=== PATIENT | female | born 1945 | race Caucasian/White ===

== ENCOUNTER 2016-09-10 18:33 | Emergency (ER) | payer MEDICARE ==
[~2016-09-10] VITALS: Ht 157.5 cm; Wt 129.0 kg
[~2016-09-10 18:33] MED LIST: ASPI81CH3; BENI40TA30 PO; CALC600T55; CLIN150 PO; COQ1200C3 PO; GLUC1000 PO; HYDR12.56 PO; LIPI10TA PO; PIOG45 PO; PRIL20CA PO
[2016-09-10 18:39] VITALS: BP 162/70; PULSE 108; RESP 16; TEMP 97.8; O2SAT 97
[2016-09-10] MEDS ORDERED: ALBU0.08 NEB (19:00)
[2016-09-10] MEDS ORDERED: BENZ100 PO (19:00)
--- NOTE | 2016-09-10 19:12 | PD ---
HPI Chief Complaint: Respiratory Symptoms Time Seen by Provider: 18:49 Travel History International Travel<30 days: No Contact w/Intl Traveler<30days: No Traveled to known affect area: No History of Present Illness HPI The patient was seen and examined in the presence of the nurse. Patient complains of dry hacking cough. Duration 3-4 days. No shortness of breath or fever. Nonsmoker. No history of lung disease. She says she frequently gets bronchitis. Had it several times last year. PFSH Past Medical History Cardiovascular Problems: Yes (htn on meds) Diabetes: Yes (type 2) ?: Not Social History Alcohol Use: No Tobacco Use: No Substance Use: No Allergies-Medications (Allergen,Severity, Reaction): Coded Allergies: Claritin (Verified Adverse Reaction, Unknown, Eyes and nose watering, ) Reported Meds & Prescriptions Reported Meds & Active Scripts Active Albuterol Neb (Albuterol Sulfate) 2.5 Mg/3 Ml Neb 2.5 Mg NEB Q4HR NEB PRN Tessalon Perles (Benzonatate) 100 Mg Cap 200 Mg PO TID PRN Reported Calcium + D3 600-200 mg-Unit (Calcium Carbonate-Vitamin D) 1 Tab Tab BID Coq10 (Coenzyme Q10) 200 Mg Cap 200 Mg PO DAILY Aspirin 81 Low Dose (Aspirin) 81 Mg Chw Hydrochlorothiazide (Miscellaneous Medication) 12.5 Mg Cap 12.5 Mg PO DAILY Benicar (Olmesartan) 40 Mg Tab 40 Mg PO DAILY Prilosec 20 mg (Omeprazole) 20 Mg Cap 20 Mg PO DAILY Lipitor 10 Mg Tab (Atorvastatin Calcium) 10 Mg Tab 10 Mg PO HS Glucophage 1000 mg (Metformin HCl) 1,000 Mg Tab 1,000 Mg PO BIDPC Actos 45 mg (Pioglitazone HCl) 45 Mg Tab 1 Tab PO DAILY Cleocin (Clindamycin HCl) 150 Mg Cap 150 Mg PO Q8 Review of Systems General / Constitutional: No: Fever HENT: No: Headaches Respiratory: Positive: Cough Physical Exam Narrative RESPIRATORY: Respiratory effort unlabored, no retractions or use of accessory muscles. Breath sounds are clear and symmetric. CARDIOVASCULAR: Regular rate and rhythm without murmur. Extremities showed no edema or varicosities. SKIN: Inspection shows no rash or ulcers. Palpation shows no induration or nodules. Throat clear Data Data Last Documented VS Vital Signs Date Time Temp Pulse Resp B/P Pulse Ox O2 Delivery O2 Flow Rate FiO2 09/10/16 18:39 97.8 108 16 162/70 97 MDM Medical Decision Making Medical Screen Exam Complete: Yes Emergency Medical Condition: Yes Medical Record Reviewed: Yes Differential Diagnosis Bronchitis, pneumonia, URI Narrative Course I have reviewed the patient's electronic medical record. Presentation is most consistent with an acute viral bronchitis. I don't feel antibiotics are indicated. Discussed strategies to deal with her cough. I refilled her albuterol nebulizer medication and prescribe some Tessalon for a trial Diagnosis Primary Impression: Acute viral bronchitis Additional Instructions: The patient was advised to follow up with their physician and return if they worsen. Med/Other Pt SpecificInfo: Prescription(s) given Scripts Albuterol Neb 2.5 Mg/3 Ml Neb2.5 Mg NEB Q4HR NEB PRN (SHORTNESS OF BREATH) #60 NEBULE Ref 0 Prov:Rich Martinez MD 09/10/16 Benzonatate (Tessalon Perles)100 Mg [id number] Mg PO TID PRN (COUGH) #21 CAP Ref 0 Prov:Rich Martinez MD 09/10/16 Disposition: 01 DISCHARGE HOME Condition: Stable Rich Martinez MD Sep 10, 2016 19:12
[2016-09-10] MEDS ORDERED: METF1000 PO (19:23)
[2016-09-10] MEDS ORDERED: ASPI81CH CHEW (19:23)
[2016-09-10] MEDS ORDERED: VENTAER INH (19:23)
[2016-09-10] MEDS ORDERED: ALBU.5I NEB (19:23)
[2016-09-10] MEDS ORDERED: ACTO45TA8 PO (19:23)
[2016-09-10] MEDS ORDERED: BENI40TA3 PO (19:23)
[2016-09-10] MEDS ORDERED: PRIL20CA9 PO (19:23)
[2016-09-10] MEDS ORDERED: LIPI10TA PO (19:23)
[2016-12-06] MEDS ORDERED: LORA10TA PO (13:02)
[2016-12-06] MEDS ORDERED: CALC600T25 PO (13:02)
[2016-12-06] MEDS ORDERED: COQ-100C2 PO (13:02)
[2016-12-06] MEDS ORDERED: EYECAP PO (13:02)
[2016-12-06] MEDS ORDERED: AMLO10TA2 PO (13:02)
[2016-12-06] MEDS ORDERED: AMOX500C PO (13:02)
[2016-12-06] MEDS ORDERED: HYDR12.57 PO (13:02)
[2016-12-06] MEDS ORDERED: GABA300C5 PO (13:02)
[2016-12-06] MEDS ORDERED: MOBI15TA PO (13:02)
[2016-12-06] MEDS ORDERED: MONT10TA4 PO (13:02)
[2016-12-07] MEDS ORDERED: VITATAB43 PO (11:25)
== END 2016-09-10 19:40 | disposition home or self-care (01) ==
LOC: PHED 18:33
DX: J20.8 Acute bronchitis due to other specified organisms (principal); I10 Essential (primary) hypertension; E11.9 Type 2 diabetes mellitus without complications
CPT/HCPCS: 99283

== ENCOUNTER → 2016-10-06 | Outpatient (CLI) | payer MEDICARE ==
[~2016-10-06] MED LIST changes: +ACTO45TA8 PO; +ALBU.5I NEB; +ALBU0.08 NEB; +AMLO10TA2 PO; +AMOX500C PO; +ASPI81CH CHEW; -ASPI81CH3; +BENI40TA3 PO; -BENI40TA30 PO; +BENZ100 PO; +CALC600T25 PO; -CALC600T55; -CLIN150 PO; +COQ-100C2 PO; -COQ1200C3 PO; +EYECAP PO; +GABA300C5 PO; -GLUC1000 PO; +HYDR12.57 PO; +LORA10TA PO; +METF1000 PO; +MOBI15TA PO; +MONT10TA4 PO; -PIOG45 PO; -PRIL20CA PO; +PRIL20CA9 PO; +VENTAER INH; +VITATAB43 PO
[2016-10-06 13:06] LABS: AUTOMATED NEUTROPHIL # 2.4 TH/MM3 (1.8-7.7); BASOPHIL % 1.1 % (0.0-2.0); EOSINOPHIL # 0.2 TH/MM3 (0-0.4); EOSINOPHIL % 4.4 % (0.0-4.0); HEMATOCRIT 30.5 % (35.0-46.0); HEMO FLAGS DIFF FINAL; LYMPH % 30.3 % (9.0-44.0); LYMPHOCYTE # 1.3 TH/MM3 (1.0-4.8); MEAN CORPUSCULAR HGB CONC 33.7 % (32.0-36.0); MONO % 8.7 % (0.0-8.0); NEUT % 55.5 % (16.0-70.0); PLATELET COUNT 193 TH/MM3 (150-450); RED BLOOD COUNT 3.21 MIL/MM3 (4.00-5.30); RED CELL DISTRIBUTION WIDTH 15.1 % (11.6-17.2); WHITE BLOOD COUNT 4.3 TH/MM3 (4.0-11.0)
[2016-10-06 13:28] LABS: ANION GAP 10 MEQ/L (5-15); AST (GOT) 16 U/L (15-37); BLOOD UREA NITROGEN 33 MG/DL (7-18); CHLORIDE 102 MEQ/L (98-107); GLOMERULAR FILTRATION RATE 43 ML/MIN (>89); POTASSIUM 4.3 MEQ/L (3.5-5.1); SODIUM (NA) 138 MEQ/L (136-145)
[2016-10-06 13:32] LABS: WESTERGREN SEDIMENTATION RATE 48 mm/hr (0-30)
[2016-10-06 13:47] LABS: RHEUMATOID FACTOR TRIGGER LESS THAN 10.0 IU/ML (0.0-14.9)
[2016-10-06 13:55] LABS: ALKALINE PHOSPHATASE 76 U/L (45-117); ALT (GPT) 17 U/L (10-53); TOTAL BILIRUBIN ADULT 0.7 MG/DL (0.2-1.0)
[2016-10-06 14:01] LABS: CREATINE KINASE 87 U/L (26-192)
[2016-10-06 21:44] LABS: HEMOGLOBIN A1a 1.8 %; HEMOGLOBIN A1b 2.3 %; HEMOGLOBIN Ao 81.6 %; HEMOGLOBIN LA1C 2.2 %; HEMOGLOBIN P3 6.5 %
[2016-10-09 03:53] LABS: VITAMIN B6 11.9 ng/mL (2.1-21.7)
== END ==
LOC: PLAB 10:31
PROVIDERS: ATTEND Psychiatry & Neurology Neurology
DX: M32.10 Systemic lupus erythematosus, organ or system involvement unspecified (principal); G64 Other disorders of peripheral nervous system; E11.40 Type 2 diabetes mellitus with diabetic neuropathy, unspecified
CPT/HCPCS: 36415; 80053; 82550; 82607; 82746; 83036; 84207; 84425; 85025; 85652; 86038; 86430

== ENCOUNTER → 2016-11-07 | Outpatient (CLI) | payer MEDICARE | LOC: PLAB 12:39 | PROVIDERS: ATTEND Family Medicine | DX: R70.0 Elevated erythrocyte sedimentation rate (principal) | CPT/HCPCS: 36415; 85652; 86021; 86200; 86235 ==

== ENCOUNTER → 2016-12-07 | Outpatient (CLI) | payer MEDICARE ==
[~2016-12-07] VITALS: Ht 157.5 cm; Wt 132.9 kg
[~2016-12-07] MED LIST changes: -ALBU.5I NEB; -BENZ100 PO; +DEXTROSE 5% IN WATE 1000ML INJ 1,000 ML IV SCH; -HYDR12.56 PO; +PROPOFOL 200 MG/20 ML AMP IV ONE; -VENTAER INH
[2016-12-07 10:50] VITALS: BP 187/69; PULSE 105; RESP 18; TEMP 98.5; O2SAT 99
--- NOTE | 2016-12-07 12:30 | PD.HP.UP ---
H&P Update Note The Pre-Admit History and Physical Examination regarding the above named patient was reviewed (including, but not limited to, vital signs, heart, lungs, co-morbid conditions), and upon re-examination it is noted that: the patient's condition has not significantly changed since the last examination. Yefri Mcclain MD December 07, 2016 12:30
--- NOTE | 2016-12-07 12:38 | EKG ---
Date Performed: 12/07/2016 Time Performed: 11:12:49 PTAGE: 71 years EKG: Sinus rhythm NONSPECIFIC ST & T-WAVE ABNORMALITY BORDERLINE ECG NO PREVIOUS TRACING DOCTOR: Victoriano Awad Interpretating Date/Time 12/07/2016 12:38:13
[2016-12-07 13:07] VITALS: TEMP 97.5
[2016-12-07 13:40] VITALS: BP 130/62; PULSE 90; RESP 18; O2SAT 100
--- NOTE | 2016-12-08 08:14 | MR ---
cc: MARIN AVILES M.D., VIVIANE M. MD DATE 12/07/2016 PREOPERATIVE DIAGNOSIS Progressive anemia, colon cancer screening. PROCEDURE Colonoscopy to cecum. POSTOPERATIVE DIAGNOSIS 1. Normal cecum and ileocecal valve 2. Diverticulosis rectosigmoid left colon 3. Internal-external hemorrhoids SURGEON Dr. Aviles PROCEDURE The patient was placed in the left lateral decubitus position. After adequate anesthesia sedation, rectal exam confirmed the emptiness in the rectal vault. The Olympus colonoscope was then introduced into the rectum and advanced easily under direct vision through the proximal colon putting some right upper quadrant pressure in the abdomen to get the scope down to the cecum. The ileocecal valve was seen and was pretty normal. There were no vascular abnormalities noted in the cecum. Colonoscope was then gradually withdrawn visualizing the mucosal surface throughout the distal colon. No inflammatory changes were seen. No polyps were seen. Diverticulosis was noted throughout the rectosigmoid, but no signs of any active bleeding. Rectosigmoid was pretty unremarkable. Internal hemorrhoids were irritated, but no signs of ulceration or thrombosis. The patient tolerated the procedure quite well and was brought to recovery room in stable condition. MD KAJAL Ireland/MING /10:33 PM /8:10 AM
== END ==
LOC: HEND 10:27
PROVIDERS: ATTEND Colon & Rectal Surgery
DX: Z12.11 Encounter for screening for malignant neoplasm of colon (principal); D64.9 Anemia, unspecified; K64.8 Other hemorrhoids; K57.30 Diverticulosis of large intestine without perforation or abscess without bleeding; K64.4 Residual hemorrhoidal skin tags; Z01.810 Encounter for preprocedural cardiovascular examination
CPT/HCPCS: 93005

== ENCOUNTER → 2017-01-10 | Outpatient (CLI) | payer MEDICARE ==
[~2017-01-10] MED LIST changes: -DEXTROSE 5% IN WATE 1000ML INJ 1,000 ML IV SCH; -PROPOFOL 200 MG/20 ML AMP IV ONE
[2017-01-10 13:47] LABS: ANION GAP 11 MEQ/L (5-15); AST (GOT) 17 U/L (15-37); BICARBONATE 26.6 MEQ/L (21.0-32.0); BLOOD UREA NITROGEN 25 MG/DL (7-18); CHLORIDE 100 MEQ/L (98-107); GLOMERULAR FILTRATION RATE 52 ML/MIN (>89); POTASSIUM 3.7 MEQ/L (3.5-5.1); SODIUM (NA) 138 MEQ/L (136-145)
[2017-01-10 14:21] LABS: ALKALINE PHOSPHATASE 88 U/L (45-117); ALT (GPT) 22 U/L (10-53); GLUCOSE,FASTING 97 MG/DL (74-99); HDL CHOLESTEROL 73.3 MG/DL (40.0-60.0); LDL CHOLESTEROL 67 MG/DL (0-99); TOTAL BILIRUBIN ADULT 0.7 MG/DL (0.2-1.0); TRANSFERRIN IRON PROFILE 325 MG/DL (200-360)
[2017-01-10 15:57] LABS: AUTOMATED NEUTROPHIL # 3.7 TH/MM3 (1.8-7.7); BASOPHIL # 0.1 TH/MM3 (0-0.2); BASOPHIL % 1.1 % (0.0-2.0); EOSINOPHIL # 0.1 TH/MM3 (0-0.4); HEMATOCRIT 36.2 % (35.0-46.0); HEMO FLAGS DIFF FINAL; LYMPH % 21.9 % (9.0-44.0); LYMPHOCYTE # 1.2 TH/MM3 (1.0-4.8); MEAN CELL VOLUME 96.6 FL (80.0-100.0); MEAN CORPUSCULAR HGB CONC 32.1 % (32.0-36.0); MONO % 9.3 % (0.0-8.0); NEUT % 65.7 % (16.0-70.0); PLATELET COUNT 231 TH/MM3 (150-450); RED BLOOD COUNT 3.75 MIL/MM3 (4.00-5.30); RED CELL DISTRIBUTION WIDTH 15.2 % (11.6-17.2); WHITE BLOOD COUNT 5.6 TH/MM3 (4.0-11.0)
[2017-01-10 18:14] LABS: HEMOGLOBIN A1a 1.7 %; HEMOGLOBIN A1b 2.1 %; HEMOGLOBIN Ao 82.7 %; HEMOGLOBIN LA1C 2.1 %; HEMOGLOBIN P3 4.5 %
== END ==
LOC: PLAB 10:50
PROVIDERS: ATTEND Family Medicine
DX: D64.9 Anemia, unspecified (principal); E78.5 Hyperlipidemia, unspecified; E11.42 Type 2 diabetes mellitus with diabetic polyneuropathy; E53.8 Deficiency of other specified B group vitamins
CPT/HCPCS: 36415; 80053; 80061; 82607; 83036; 83540; 83550; 85025

== ENCOUNTER → 2017-05-09 | Outpatient (CLI) | payer MEDICARE ==
[2017-05-09 13:21] LABS: ANION GAP 7 MEQ/L (5-15); BICARBONATE 27.5 MEQ/L (21.0-32.0); BLOOD UREA NITROGEN 40 MG/DL (7-18); CHLORIDE 103 MEQ/L (98-107); GLOMERULAR FILTRATION RATE 35 ML/MIN (>89); POTASSIUM 4.3 MEQ/L (3.5-5.1); SODIUM (NA) 137 MEQ/L (136-145)
[2017-05-09 13:39] LABS: MICRO ALBUMIN RANDOM URINE RAW 26.9 MG/L (0.0-30.0)
[2017-05-09 13:49] LABS: TRANSFERRIN IRON PROFILE 299 MG/DL (200-360)
[2017-05-09 14:02] LABS: BASOPHIL # 0.1 TH/MM3 (0-0.2); BASOPHIL % 1.7 % (0.0-2.0); EOSINOPHIL # 0.1 TH/MM3 (0-0.4); EOSINOPHIL % 2.6 % (0.0-4.0); HEMATOCRIT 35.6 % (35.0-46.0); LYMPH % 22.4 % (9.0-44.0); MEAN CELL VOLUME 98.7 FL (80.0-100.0); MEAN CORPUSCULAR HEMOGLOBIN 33.4 PG (27.0-34.0); MEAN CORPUSCULAR HGB CONC 33.9 % (32.0-36.0); MONO % 7.2 % (0.0-8.0); NEUT % 66.1 % (16.0-70.0); PLATELET COUNT 142 TH/MM3 (150-450); RED CELL DISTRIBUTION WIDTH 15.4 % (11.6-17.2); WHITE BLOOD COUNT 4.6 TH/MM3 (4.0-11.0)
[2017-05-09 14:52] LABS: HEMO FLAGS AUTO DIFF
[2017-05-09 14:59] LABS: ACANTHOCYTES OCC (NORMAL); SCAN/DIFF AUTO DIFF CONFIRMED
[2017-05-09 15:00] LABS: PLATELET ESTIMATE SMEAR NORMAL (NORMAL); PLATELET MORPHOLOGY NORMAL (NORMAL)
== END ==
LOC: PLAB 09:41
PROVIDERS: ATTEND Nurse Practitioner Acute Care
DX: N18.3 Chronic kidney disease, stage 3 (moderate) (principal); D63.1 Anemia in chronic kidney disease
CPT/HCPCS: 36415; 80048; 82043; 82306; 83540; 83550; 83970; 85025

== ENCOUNTER → 2017-05-15 | Outpatient (CLI) | payer MEDICARE ==
[2017-05-15 14:07] LABS: HEMOGLOBIN A1a 1.5 %; HEMOGLOBIN A1b 2.1 %; HEMOGLOBIN Ao 83.1 %; HEMOGLOBIN LA1C 2.1 %
[2017-05-15 15:05] LABS: ANION GAP 10 MEQ/L (5-15); AST (GOT) 18 U/L (15-37); BICARBONATE 24.7 MEQ/L (21.0-32.0); BLOOD UREA NITROGEN 40 MG/DL (7-18); CHLORIDE 104 MEQ/L (98-107); GLOMERULAR FILTRATION RATE 40 ML/MIN (>89); GLUCOSE,FASTING 97 MG/DL (74-99); SODIUM (NA) 139 MEQ/L (136-145)
[2017-05-15 15:20] LABS: ALKALINE PHOSPHATASE 78 U/L (45-117); ALT (GPT) 22 U/L (10-53); LDL CHOLESTEROL 66 MG/DL (0-99); TOTAL BILIRUBIN ADULT 0.6 MG/DL (0.2-1.0)
== END ==
LOC: PLAB 09:35
DX: E78.5 Hyperlipidemia, unspecified (principal); E11.9 Type 2 diabetes mellitus without complications
CPT/HCPCS: 36415; 80053; 80061; 83036

== ENCOUNTER → 2017-09-11 | Outpatient (CLI) | payer MEDICARE ==
[~2017-09-11] MED LIST changes: +ACTO45TA15 PO; -ACTO45TA8 PO; +ASPI-516 CHEW; -ASPI81CH CHEW; +BENI40TA29 PO; -BENI40TA3 PO; -CALC600T25 PO; +CALC600T5 PO
[2017-09-11 16:36] LABS: HEMOGLOBIN A1C 6.9 % (4.3-6.0)
== END ==
LOC: PLAB 10:01
DX: E11.9 Type 2 diabetes mellitus without complications (principal)
CPT/HCPCS: 36415; 83036

== ENCOUNTER → 2017-12-01 | Outpatient (CLI) | payer MEDICARE ==
[2017-12-01 15:22] LABS: AUTOMATED NEUTROPHIL # 2.2 TH/MM3 (1.8-7.7); BASOPHIL % 1.1 % (0.0-2.0); EOSINOPHIL # 0.1 TH/MM3 (0-0.4); HEMATOCRIT 31.3 % (35.0-46.0); HEMOGLOBIN 10.5 GM/DL (11.6-15.3); LYMPHOCYTE # 0.9 TH/MM3 (1.0-4.8); MEAN CELL VOLUME 97.4 FL (80.0-100.0); MEAN CORPUSCULAR HEMOGLOBIN 32.7 PG (27.0-34.0); MEAN CORPUSCULAR HGB CONC 33.6 % (32.0-36.0); MEAN PLATELET VOLUME 8.6 FL (7.0-11.0); MONO % 9.9 % (0.0-8.0); MONOCYTE # 0.4 TH/MM3 (0-0.9); PLATELET COUNT 214 TH/MM3 (150-450); RED BLOOD COUNT 3.21 MIL/MM3 (4.00-5.30); RED CELL DISTRIBUTION WIDTH 14.2 % (11.6-17.2); WHITE BLOOD COUNT 3.6 TH/MM3 (4.0-11.0)
[2017-12-01 15:33] LABS: BACTERIA, URINE MANY /hpf; BILIRUBIN, URINE NEG (NEG); BLOOD, URINE TRACE (NEG); GLUCOSE,URINE NEG (NEG); KETONE, URINE NEG (NEG); MUCUS URINE FEW /lpf (OCC); NITRITE,URINE POS (NEG); SQUAMOUS EPITHELIAL CELL URINE 1 /hpf (0-5); URINE COLOR LIGHT-YELLOW (YELLW/STRAW); URINE LEUKOCYTE ESTERASE MOD (NEG)
[2017-12-01 15:51] LABS: ALBUMIN 3.6 GM/DL (3.4-5.0); BICARBONATE 25.3 MEQ/L (21.0-32.0); BLOOD UREA NITROGEN 33 MG/DL (7-18); CALCIUM 9.5 MG/DL (8.5-10.1); CHLORIDE 105 MEQ/L (98-107); CREATININE 1.15 MG/DL (0.50-1.00); GLOMERULAR FILTRATION RATE 46 ML/MIN (>89); GLUCOSE,FASTING 99 MG/DL (74-99); PHOSPHORUS 3.4 MG/DL (2.5-4.9); SODIUM (NA) 141 MEQ/L (136-145)
[2017-12-01 16:21] LABS: HEMOGLOBIN A1C 6.7 % (4.3-6.0)
[2017-12-01 17:53] LABS: LYMPHOCYTES 27 % (9-44); MONOCYTES 11 % (0-8); NEUTROPHIL # MANUAL DIFF 2.2 TH/MM3 (1.8-7.7); POLYS (SEG NEUTROPHILS) 61 % (16-70)
== END ==
LOC: PLAB 09:48
PROVIDERS: ATTEND Nurse Practitioner Acute Care
DX: E11.22 Type 2 diabetes mellitus with diabetic chronic kidney disease (principal); D63.1 Anemia in chronic kidney disease; N18.3 Chronic kidney disease, stage 3 (moderate); N39.0 Urinary tract infection, site not specified; B96.1 Klebsiella pneumoniae [K. pneumoniae] as the cause of diseases classified elsewhere
CPT/HCPCS: 36415; 80069; 81001; 82306; 83036; 83970; 85007; 85027; 87077; 87086; 87186

== ENCOUNTER → 2017-12-08 | Outpatient (CLI) | payer MEDICARE ==
[~2017-12-08] MED LIST changes: +CHOL10008; +CLAR10CA3 PO; +COQ-50CA2 PO; +LIDO1PAD52 TOPICAL; +NYST15T TOPICAL; +RANI150T PO; +ROBA500T PO; +VITA100021 SL; +[UNRECOGNIZED DRUG - OTHER] P-ARTICULR
[2017-12-08 14:19] LABS: FREE T4 1.19 NG/DL (0.76-1.46)
== END ==
LOC: PLAB 10:56
DX: R63.5 Abnormal weight gain (principal)
CPT/HCPCS: 36415; 84439; 84443

== ENCOUNTER 2017-12-18 18:11 | Emergency (ER) | payer MEDICARE ==
[~2017-12-18] VITALS: Ht 157.5 cm; Wt 136.3 kg
[~2017-12-18 18:11] MED LIST changes: -CHOL10008; -CLAR10CA3 PO; -COQ-50CA2 PO; -LIDO1PAD52 TOPICAL; -NYST15T TOPICAL; -RANI150T PO; -ROBA500T PO; -VITA100021 SL; -[UNRECOGNIZED DRUG - OTHER] P-ARTICULR
[2017-12-18 18:20] VITALS: BP 148/66; PULSE 101; RESP 16; TEMP 98; O2SAT 100
[2017-12-18] MEDS ORDERED: BENI40TA29 PO (18:41)
[2017-12-18] MEDS ORDERED: VITA100021 SL (18:41)
[2017-12-18] MEDS ORDERED: NYST15T TOPICAL (18:41)
[2017-12-18] MEDS ORDERED: COQ-50CA2 PO (18:41)
[2017-12-18] MEDS ORDERED: [UNRECOGNIZED DRUG - OTHER] P-ARTICULR (18:41)
[2017-12-18] MEDS ORDERED: RANI150T PO (18:41)
[2017-12-18] MEDS ORDERED: CLAR10CA3 PO (18:41)
[2017-12-18] MEDS ORDERED: CHOL10008 (18:41)
--- NOTE | 2017-12-18 18:43 | PD ---
HPI Chief Complaint: Musculoskeletal Complaint Time Seen by Provider: 18:27 Travel History International Travel<30 days: No Contact w/Intl Traveler<30days: No Traveled to known affect area: No History of Present Illness HPI 72-year-old female with history of arthritis, diabetes mellitus with CKD 3 presents emergency department for evaluation of left neck and left upper shoulder pain that is been persistent since yesterday. Patient states she woke up with left shoulder pain and has migrated up to the neck. Says she came in today because the pain is significant and she was unable to sleep last night. Patient points to the lateral aspect of the upper trapezius. Says she feels occasional "catching" whenever she turns her head. Says the pain is worse with lateral rotation of her neck. Denies numbness or tingling in the extremities. Denies radicular symptoms. She denies any trauma to the neck. PFSH Past Medical History Hx Anticoagulant Therapy: Yes (asa 81mg takes 3 times a week) Asthma: Yes Cancer: No Cardiovascular Problems: Yes (htn on meds) Diabetes: Yes (type 2) Patient Takes Glucophage: No Endocrine: Yes Gastrointestinal Disorders: Yes Genitourinary: No Hepatitis: No Hiatal Hernia: Yes Hypertension: Yes Immune Disorder: No Musculoskeletal: Yes (ARTHRITIS) Neurologic: Yes (NEUROPATHY) Psychiatric: No Reproductive: No Respiratory: Yes (COUGH SINCE LAST SUMMER) Thyroid Disease: Yes ?: Not Past Surgical History Abdominal Surgery: Yes (APPY) AICD: No Ear Surgery: Yes (R EAR) Gynecologic Surgery: Yes (HYSTERECTOMY) Hysterectomy: Yes Joint Replacement: Yes (R/L KNEE) Pacemaker: No Other Surgery: Yes Social History Alcohol Use: No Tobacco Use: No Substance Use: No Allergies-Medications (Allergen,Severity, Reaction): Coded Allergies: ciprofloxacin (Verified Allergy, Intermediate, n/v, 12/18/17) lisinopril (Verified Allergy, Intermediate, Diarrhea, 12/18/17) sulfamethoxazole (Verified Allergy, Intermediate, Nausea/Vomiting, 12/18/17 ) trimethoprim (Verified Allergy, Intermediate, Nausea/Vomiting, 12/18/17) loratadine (Unverified Adverse Reaction, Unknown, Eyes and nose watering, 12/18/17) PT STATES SHE IS NOT ALLERGIC Reported Meds & Prescriptions Reported Meds & Active Scripts Active Robaxin (Methocarbamol) 500 Mg Tab 500 Mg PO TID 5 Days Reported Vitamin D3 (Cholecalciferol) 1,000 Unit Cap 1,000 Units DAILY Vitamin B-12 (Cyanocobalamin) 1,000 Mcg Subl 1,000 Mcg SL DAILY Ranitidine (Ranitidine HCl) 150 Mg Tab 150 Mg PO DAILY [Pro Optic] 1 Mg P-ARTICULR DAILY Nystatin Topical (Nystatin) 100,000 unit/gm Cream 1 Applic TOPICAL BID Claritin (Loratadine) 10 Mg Cap 10 Mg PO DAILY Coq-10 (Coenzyme Q10 (Ubidecarenone)) 50 Mg Cap 200 Mg PO DAILY Benicar (Olmesartan) 40 Mg Tab 40 Mg PO DAILY Vitamin [id number] Acid (Cobalamine Combinations) 500-400 Mcg Tab 1 Tab PO DAILY Montelukast (Montelukast Sodium) 10 Mg Tab 10 Mg PO HS Calcium (Calcium Carbonate) 600 Mg Tab 1 Tab PO DAILY Amlodipine (Amlodipine Besylate) 10 Mg Tab 10 Mg PO DAILY Hydrochlorothiazide 12.5 Mg Cap 12.5 Mg PO DAILY Actos (Pioglitazone HCl) 45 Mg Tab 45 Mg PO DAILY Lipitor (Atorvastatin Calcium) 10 Mg Tab 10 Mg PO HS Aspirin 81 Mg Chew 81 Mg CHEW DAILY Review of Systems Except as stated in HPI: all other systems reviewed are Neg Physical Exam Narrative GENERAL: Well-nourished, well-developed patient. SKIN: Focused skin assessment warm/dry. HEAD: Normocephalic. EYES: No scleral icterus. No injection or drainage. NECK: Supple, trachea midline. No JVD or lymphadenopathy. No midline TTP, palpable cord to lateral SCM, tenderness palpation to the upper left trapezius muscles. CARDIOVASCULAR: Regular rate and rhythm without murmurs, gallops, or rubs. RESPIRATORY: Breath sounds equal bilaterally. No accessory muscle use. GASTROINTESTINAL: Abdomen soft, non-tender, nondistended. MUSCULOSKELETAL: No cyanosis, or edema. BACK: Nontender without obvious deformity. No CVA tenderness. Data Data Last Documented VS Vital Signs Date Time Temp Pulse Resp B/P (MAP) Pulse Ox O2 Delivery O2 Flow Rate FiO2 12/18/17 18:20 98.0 101 16 148/66 (93) 100 Orders Orders Methocarbamol (Robaxin) (12/18/17 18:45) Ed Discharge Order (12/18/17 18:44) MDM Medical Decision Making Medical Screen Exam Complete: Yes Emergency Medical Condition: Yes Differential Diagnosis Torticollis, neck strain, neck sprain, muscle spasms Narrative Course 72-year-old female with history of arthritis, diabetes mellitus with CKD 3 presents emergency department for evaluation of left neck and left upper shoulder pain that is been persistent since yesterday. Patient states she woke up with left shoulder pain and has migrated up to the neck. Says she came in today because the pain is significant and she was unable to sleep last night. Patient points to the lateral aspect of the upper trapezius. Says she feels occasional "catching" whenever she turns her head. Says the pain is worse with lateral rotation of her neck. Denies numbness or tingling in the extremities. Denies radicular symptoms. She denies any trauma to the neck. Says she went to have a deep tissue massage today but the massage therapist wanted to avoid the area for concern of complications as a result of muscle spasms. Patient is also tried ice without significant relief. Patient states that she sleeps in a recliner every day because of chronic low back pain. Vital signs are stable. Physical exam findings consistent with developing torticollis. Significant tenderness palpation to the lateral sternocleidomastoid muscles. Head is not yet fixed and a single position however, it is appearing to be rotated slightly. Robaxin administered to the emergency department today. Patient will be discharged with Robaxin. Advised to use caution while taking this medication. Strongly advised range of motion exercises to reduce complications. Diagnosis Primary Impression: Torticollis Referrals: Primary Care Physician Additional Instructions: Use heat and ice for symptom relief. Perform light stretches of the neck and upper back. If no contraindications, you may use Tylenol or Motrin per package instructions to reduce pain. Return to the ED if your symptoms persist or worsen. Follow up with your primary care office within 2 days. Use caution with Robaxin as it may make you feel drowsy. Scripts Methocarbamol (Robaxin) 500 Mg Tab 500 MG PO TID for Muscle Spasm for 5 Days, TAB 0 Refills Prov: Eliceo Bragg MD 12/18/17 Disposition: 01 DISCHARGE HOME Condition: Stable Raegan Gonzalez December 18, 2017 18:43
[2017-12-18] MEDS ORDERED: ROBA500T PO (18:44)
[2017-12-18] MEDS ORDERED: METHOCARBAMOL 500 MG TAB PO ONE (18:45)
[2017-12-18] MEDS ORDERED: LIDO1PAD52 TOPICAL (18:57)
== END 2017-12-18 19:09 | disposition home or self-care (01) ==
LOC: PHEFT 18:11
DX: M43.6 Torticollis (principal); M25.512 Pain in left shoulder; E11.22 Type 2 diabetes mellitus with diabetic chronic kidney disease; I12.9 Hypertensive chronic kidney disease with stage 1 through stage 4 chronic kidney disease, or unspecified chronic kidney disease; N18.3 Chronic kidney disease, stage 3 (moderate); J45.909 Unspecified asthma, uncomplicated; M19.90 Unspecified osteoarthritis, unspecified site; E11.40 Type 2 diabetes mellitus with diabetic neuropathy, unspecified; E07.9 Disorder of thyroid, unspecified
CPT/HCPCS: 99283